=== PATIENT | female | born 1970 | race Caucasian/White ===

== ENCOUNTER 2016-12-23 22:45 | Emergency (ER) | payer OTHER ==
[~2016-12-23] VITALS: Ht 160 cm; Wt 74.8 kg
[~2016-12-23 22:45] MED LIST: LOSA25TA14 PO; MOTRIN PRN PAIN
[2016-12-23 22:57] VITALS: BP 149/110
--- NOTE | 2016-12-23 23:10 | NUR ---
PATIENT AMBULATED TO ER BED 5.
--- NOTE | 2016-12-23 23:25 | NUR ---
46Y/F PATIENT PRESENTS TO ED WITH C/O ABDOMINAL PAIN X 2 WKS . PT STATES PAIN WHEN URINATE, HX. UTI 7 MO AGO, HTN . DENIES N/V/D; SKIN IS PINK/WARM/DRY; AAOX4 WITH EVEN AND STEADY GAIT; LUNGS CLEAR BL; HR EVEN AND REGULAR; PT DENIES ANY FEVER, CP, SOB, OR COUGH AT THIS TIME; PATIENT STATES PAIN OF 5/10 AT THIS TIME; VSS, BP ELEVTAED; PATIENT POSITIONED FOR COMFORT; HOB ELEVATED; BEDRAILS UP X2; BED DOWN. ER MD MADE AWARE OF PT STATUS.
--- NOTE | 2016-12-23 23:38 | NUR ---
PATIENT BEING EVALUATED BY DR. JARA.
--- NOTE | 2016-12-24 00:20 | NUR ---
Patient discharged with v/s stable. Written and verbal after care instructions given and explained. Patient alert, oriented and verbalized understanding of instructions. Ambulatory with steady gait. All questions addressed prior to discharge. ID band removed. Patient advised to follow up with PMD. Rx of COLACE 100 MG given. Patient educated on indication of medication including possible reaction and side effects. Opportunity to ask questions provided and answered.
[2016-12-24 00:28] VITALS: BP 150/100
== END 2016-12-24 00:20 | disposition home or self-care (01) ==
LOC: MED 22:45
DX: R10.32 Left lower quadrant pain (principal); I10 Essential (primary) hypertension; Z71.6 Tobacco abuse counseling
CPT/HCPCS: 81002; 81025; 99283

== ENCOUNTER 2017-09-20 18:52 | Emergency (ER) | payer SELFPAY ==
[~2017-09-20] VITALS: Ht 154.9 cm; Wt 72.6 kg
[2017-09-20 19:11] VITALS: BP 211/142
--- NOTE | 2017-09-20 19:25 | NUR ---
PATIENT PRESENTS TO ED WITH C/O RT EARACHE PT DENIES N/V/D; SKIN IS PINK/WARM/DRY; AAOX4 WITH EVEN AND STEADY GAIT; LUNGS CLEAR BL; HR EVEN AND REGULAR; PT DENIES ANY FEVER, CP, SOB, OR COUGH AT THIS TIME; PATIENT STATES PAIN OF 8/10 AT THIS TIME; PATIENT POSITIONED FOR COMFORT; HOB ELEVATED; BEDRAILS UP X2; BED DOWN. ER MD MADE AWARE OF PT STATUS.
--- NOTE | 2017-09-20 19:27 | NUR ---
TO ER BED 3
--- NOTE | 2017-09-20 19:30 | NUR ---
Patient being evaluated by physician at bedside.
[2017-09-20] MEDS ORDERED: cloNIDine 0.1 MG TAB PO ONE (19:35)
[2017-09-20] MEDS ORDERED: hydrALAZINE 20 MG/ML VIAL IM ONE (21:10)
[2017-09-20] MEDS ORDERED: AMOXICILLIN 500 MG CAP PO ONE (21:10)
--- NOTE | 2017-09-20 21:58 | NUR ---
Patient discharged with v/s stable. Written and verbal after care instructions given and explained. Patient alert, oriented and verbalized understanding of instructions. Ambulatory with steady gait. All questions addressed prior to discharge. ID band removed. Patient advised to follow up with PMD. Rx of AMOXICILIN 875MG, LOSARTAN POTASSIUM/HYDROCHLOROTHIAZIDE 100MG-25MG, MOTRIN 800MG given. Patient educated on indication of medication including possible reaction and side effects. Opportunity to ask questions provided and answered.
[2017-09-20 22:11] VITALS: BP 173/122
== END 2017-09-20 21:58 | disposition home or self-care (01) ==
LOC: MED 18:52
DX: H66.91 Otitis media, unspecified, right ear (principal); I10 Essential (primary) hypertension
CPT/HCPCS: 70450; 93005; 96372; 99284; J0360; 81002; 81025

== ENCOUNTER 2020-06-22 04:40 | Emergency (ER) | payer MEDICAID ==
[~2020-06-22] VITALS: Ht 162.6 cm; Wt 76.7 kg
[~2020-06-22 04:40] MED LIST changes: -LOSA25TA14 PO; +LOSA25TA32 PO
[2020-06-22 04:45] VITALS: BP 240/150
--- NOTE | 2020-06-22 04:48 | NUR ---
TO BED # 11 AMBULATORY
--- NOTE | 2020-06-22 05:03 | NUR ---
Dr. Yu examining patient.
--- NOTE | 2020-06-22 05:09 | NUR ---
49 Y/O FEMALE PRESENTED TO ED C/O ABDOMINAL PAIN AND VAGINAL DISCHARGE X 1 MONTH. PT DENIES DYSURIA AND FOUL ODOR TO DISCHARGE. PT STATES PAIN 7/10. PT STATES SHE TREATED HERSELF W/ MONOSTAT FOR A YEAST INFECTION AND IT IS NOT GETTING BETTER. PT STARTED HER PERIOD X 3 DAYS AGO. PT STATES SHE FEELS BLOATED. ABD ROUND , SOFT AND NON TENDER. ACTIVE BOWEL SOUNDS. PT PLACED IN GOWN, RESTING IN BED, LOCKED AND IN LOWEST POSITION ,HOB ELEVATED, SIDE RAIL X1. NO ACUTE DISTRESS NOTED. PMH: HTN NKA
--- NOTE | 2020-06-22 05:40 | NUR ---
Female Tile Trimmer accompanied female patient for Pelvic Exam performed by ERIN Yu.
[2020-06-22] MEDS ORDERED: DOXYCYCLINE 100 MG CAP PO SCH (05:45)
[2020-06-22] MEDS ORDERED: cefTRIAXone 250 MG in LIDOCAINE MPF 1% 0.9 ML IM ONE (05:45)
--- NOTE | 2020-06-22 05:45 | NUR ---
WET MOUNT AND URINE SAMPLE WALKED TO LAB AT THIS TIME.
[2020-06-22] MEDS ORDERED: cefTRIAXone 250 MG VIAL ONE (06:08)
[2020-06-22] MEDS ORDERED: LIDOCAINE MPF 1% 5 ML ONE (06:09)
[2020-06-22] MEDS ORDERED: NIFEdipine 30 MG TABER PO ONE (06:10)
--- NOTE | 2020-06-22 06:49 | NUR ---
PER ERIN SAMANIEGO , OKAY TO DISCHARGE - NEW BP TRENDING DOWN AFTER MEDICATION ADMINISTRATION.
[2020-06-22 06:59] VITALS: BP 224/151
--- NOTE | 2020-06-22 06:59 | NUR ---
Patient discharged with v/s stable. Written and verbal after care instructions given and explained. Patient alert, oriented and verbalized understanding of instructions. Ambulatory with steady gait. All questions addressed prior to discharge. ID band removed. Patient advised to follow up with PMD. Rx of METRONIDAZOLE , AMLODIPINE, DOXYCYCLINE given. Patient educated on indication of medication including possible reaction and side effects. Opportunity to ask questions provided and answered.
== END 2020-06-22 06:59 | disposition home or self-care (01) ==
LOC: MED 04:40
DX: N73.9 Female pelvic inflammatory disease, unspecified (principal); I10 Essential (primary) hypertension; F17.210 Nicotine dependence, cigarettes, uncomplicated; Z79.899 Other long term (current) drug therapy
CPT/HCPCS: 36415; 81002; 81025; 87210; 87491; 96372; 99283; J0696; J2001